=== PATIENT | male | born 1975 | race Caucasian/White ===

== ENCOUNTER → 2018-08-17 | Outpatient (CLI) | payer BC ==
--- NOTE | 2018-08-17 17:48 | REP ---
Clinical: Pain and swelling left second digit. Technique: AP, lateral, bilateral oblique views of the left second digit. Findings: Lateral view demonstrates very subtle cortical irregularity at the distal metadiaphyseal junction of the middle phalanx which likely reflects nonacute healed fracture and is consistent with the patient's history and symptomatology. Examination appears otherwise normal for age. No subcutaneous emphysema or foreign body. Impression: Findings suggest nonacute healed fracture involving the distal metadiaphyseal junction of the second digit middle phalanx. Electronically Signed by Gustavo Camacho MD 08/17/2018 05:40 P
== END ==
LOC: M RAD 17:20
PROVIDERS: ATTEND Physician Assistant
DX: M79.89 Other specified soft tissue disorders (principal); M79.645 Pain in left finger(s)